=== PATIENT | male | born 1990 | race African-American/Black ===

== ENCOUNTER 2020-02-25 00:13 | Emergency (ER) | payer SELFPAY ==
[~2020-02-25] VITALS: Ht 172.7 cm; Wt 91.0 kg
[2020-02-25 00:36] VITALS: BP 121/56
[2020-02-25] MEDS ORDERED: LIDOCAINE 1%/EPI 1:100,000 10 ML VIAL IJ ONE (01:00)
[2020-02-25] MEDS ORDERED: BACITRACIN ZINC OINT UDPKT TOP ONE (01:00)
[2020-02-25] MEDS ORDERED: TETANUS, DIPHTHERIA, PERTUSSIS VAC/PF 0.5ML (>7YR OLD) IM ONE (01:00)
[2020-02-25] MEDS ORDERED: LIDOCAINE HCL/EPINEPHRINE 1%-EPI 1:100,000 20 ML VIAL INFIL NR (01:30)
== END 2020-02-25 04:15 | disposition home or self-care (01) ==
LOC: ER 00:13
DX: S61.411A Laceration without foreign body of right hand, initial encounter (principal); X58.XXXA Exposure to other specified factors, initial encounter; Y93.89 Activity, other specified; Y92.89 Other specified places as the place of occurrence of the external cause; Y99.8 Other external cause status
CPT/HCPCS: 73120; 90715; 99283; J3490